=== PATIENT | male | born 1955 | race Caucasian/White ===

== ENCOUNTER 2023-02-18 14:10 | Emergency (ER) | payer MEDICARE, MEDICAID ==
[~2023-02-18] VITALS: Ht 172.7 cm; Wt 74.8 kg
[2023-02-18 14:52] LABS: BASO % 0.2 % (0.0-1.0); EOS # 0.2 10*3/uL (0.0-0.4); EOS % 2.2 % (1.0-4.0); HEMATOCRIT 38.8 % (42.0-52.0); LYMPH # 2.1 10*3/uL (1.3-4.4); LYMPH % 19.2 % (27.0-41.0); MEAN CELL VOLUME 91.9 fl (80.0-94.0); MEAN CORPUSCULAR HGB 30.8 pg (27.0-31.0); MEAN CORPUSCULAR HGB CONC 33.5 g/dl (33.0-37.0); MEAN PLATELET VOLUME 10.1 fl (9.6-12.3); MONO % 8.9 % (3.0-9.0); NEUT # 7.5 10*3/uL (2.3-7.9); PLATELET COUNT AUTOMATED 322 10*3/uL (130-400); RED BLOOD COUNT 4.22 10*6/uL (4.50-5.90); RED CELL DISTRI WIDTH 12.8 % (0-14.5); WHITE BLOOD COUNT 10.9 10*3/uL (4.8-10.8)
[2023-02-18 15:04] LABS: ACT PARTIAL THROMBO TIME 35.4 SECONDS (20.0-32.1); INTERNATIONAL NORM RATIO 1.1 (2.0-3.5)
[2023-02-18 15:16] LABS: ALKALINE PHOSPHATASE 109 U/L (46-116); BUN 13 mg/dl (9-23); CHLORIDE 98 mmol/L (98-107); POTASSIUM 3.8 mmol/L (3.4-5.1); SGPT/ALT 20 U/L (10-49); TOTAL PROTEIN 6.2 gm/dL (6.0-8.0)
[2023-02-18] MEDS ORDERED: LEVOFLOXACIN500 MG PO (18:17)
== END 2023-02-18 19:26 | disposition home or self-care (01) ==
LOC: ED 14:10
PROVIDERS: Nurse Practitioner Family
DX: J18.9 Pneumonia, unspecified organism (principal); I10 Essential (primary) hypertension

== ENCOUNTER → 2023-05-07 | Outpatient (CLI) | payer MEDICARE, MEDICAID ==
[~2023-05-07] MED LIST: LEVOFLOXACIN500 MG PO
== END | disposition home or self-care (01) ==
LOC: CARD 00:14
PROVIDERS: ATTEND Nurse Practitioner
DX: R06.02 Shortness of breath (principal); R79.89 Other specified abnormal findings of blood chemistry

== ENCOUNTER → 2023-06-03 | Outpatient (CLI) | payer MEDICARE, MEDICAID | END | disposition home or self-care (01) | LOC: CT 04:20 → LAB 11:00 → CT 11:00 | PROVIDERS: ATTEND Internal Medicine Critical Care Medicine | DX: J47.9 Bronchiectasis, uncomplicated (principal); R91.8 Other nonspecific abnormal finding of lung field; I25.10 Atherosclerotic heart disease of native coronary artery without angina pectoris ==

== ENCOUNTER → 2023-06-24 | Outpatient (CLI) | payer OTHER, MEDICAID ==
[~2023-06-24] MED LIST changes: +ATORVASTATIN CA20 M1 PO; +ELIQUIS5 M1 PO; +HEARTBURN RELIE20 MG PO; +HYDR12.5C PO; +Lopressor25 MG PO
== END | disposition home or self-care (01) ==
LOC: CARD 06-10 07:00
PROVIDERS: ATTEND Internal Medicine Cardiovascular Disease
DX: R06.09 Other forms of dyspnea (principal); R79.89 Other specified abnormal findings of blood chemistry; R06.02 Shortness of breath

== ENCOUNTER → 2023-07-09 | Day surgery (SDC) | payer OTHER, MEDICAID ==
[~2023-07-09] VITALS: Ht 185.4 cm; Wt 68.0 kg
[~2023-07-09] MED LIST changes: +Albuterol Sulf/Ipratropium 3 ML VIAL NEB ONE; +Albuterol Sulfate 2.5 MG/0.5 ML VIAL NEB ONE; +Albuterol Sulfate 2.5 MG/3 ML VIAL NEB ONE; +Lactated Ringer's Solution 1,000 ML IV ONE; +Lidocaine Hydrochloride 4% 5 ML AMP NEB ONE; +Lidocaine Hydrochloride 4% 5 ML AMP ONE; +Midazolam Hydrochloride 2 MG/2 ML VIAL IV ONE; +PROPOFOL 200 MG/20 ML VIAL IV ONE
[2023-07-09 08:20] VITALS: BP 108/65
[2023-07-09 08:55] VITALS: BP 113/61
[2023-07-09 09:10] VITALS: BP 108/60
[2023-07-09 09:25] VITALS: BP 110/55
[2023-07-10 15:07] LABS: ACID FAST SPEC PROCESSING Concentration (.)
== END | disposition home or self-care (01) ==
LOC: SDC 07-07 09:30
PROVIDERS: ATTEND Internal Medicine Critical Care Medicine
DX: J47.9 Bronchiectasis, uncomplicated (principal); R91.8 Other nonspecific abnormal finding of lung field; R04.2 Hemoptysis; J18.9 Pneumonia, unspecified organism; J41.1 Mucopurulent chronic bronchitis; I48.91 Unspecified atrial fibrillation; I11.0 Hypertensive heart disease with heart failure; I50.9 Heart failure, unspecified; I25.10 Atherosclerotic heart disease of native coronary artery without angina pectoris; G43.909 Migraine, unspecified, not intractable, without status migrainosus; K21.9 Gastro-esophageal reflux disease without esophagitis; E78.00 Pure hypercholesterolemia, unspecified; M10.9 Gout, unspecified; I25.2 Old myocardial infarction; Z98.890 Other specified postprocedural states; Z79.899 Other long term (current) drug therapy; Z82.49 Family history of ischemic heart disease and other diseases of the circulatory system

== ENCOUNTER 2023-08-18 11:07 | Inpatient (IN) | payer MEDICARE, MEDICAID ==
[~2023-08-18] VITALS: Ht 172.7 cm; Wt 72.4 kg
[~2023-08-18 11:07] MED LIST changes: -Albuterol Sulf/Ipratropium 3 ML VIAL NEB ONE; -Albuterol Sulfate 2.5 MG/0.5 ML VIAL NEB ONE; -Albuterol Sulfate 2.5 MG/3 ML VIAL NEB ONE; -Lactated Ringer's Solution 1,000 ML IV ONE; -Lidocaine Hydrochloride 4% 5 ML AMP NEB ONE; -Lidocaine Hydrochloride 4% 5 ML AMP ONE; -Midazolam Hydrochloride 2 MG/2 ML VIAL IV ONE; -PROPOFOL 200 MG/20 ML VIAL IV ONE
[2023-08-18 11:13] VITALS: BP 120/71
[2023-08-18 11:47] LABS: BASO % 0.1 % (0.0-1.0); EOS # 0.1 10*3/uL (0.0-0.4); EOS % 1.3 % (1.0-4.0); HEMATOCRIT 41.3 % (42.0-52.0); LYMPH # 2.1 10*3/uL (1.3-4.4); LYMPH % 24.7 % (27.0-41.0); MEAN CELL VOLUME 91.8 fl (80.0-94.0); MEAN CORPUSCULAR HGB 28.7 pg (27.0-31.0); MEAN CORPUSCULAR HGB CONC 31.2 g/dl (33.0-37.0); MEAN PLATELET VOLUME 10.2 fl (9.6-12.3); MONO # 0.7 10*3/uL (0.1-1.0); MONO % 8.8 % (3.0-9.0); NEUT # 5.5 10*3/uL (2.3-7.9); NEUT % 64.6 % (47.0-73.0); PLATELET COUNT AUTOMATED 301 10*3/uL (130-400); WHITE BLOOD COUNT 8.5 10*3/uL (4.8-10.8)
[2023-08-18 12:11] LABS: ALKALINE PHOSPHATASE 137 U/L (46-116); BUN 13 mg/dl (9-23); CHLORIDE 100 mmol/L (98-107); LIPASE 35 U/L (12-53); POTASSIUM 3.7 mmol/L (3.4-5.1); SGPT/ALT 50 U/L (5-49); TOTAL PROTEIN 6.4 gm/dL (6.0-8.0)
[2023-08-18] MEDS ORDERED: AZITHROMYCIN 250 ML IV ONE (12:25)
[2023-08-18] MEDS ORDERED: Ceftriaxone Sodium 1 GM/10 ML SYR IV ONE (12:25)
[2023-08-18 14:20] VITALS: BP 116/66
[2023-08-18 16:00] VITALS: BP 120/54
[2023-08-18] MEDS ORDERED: Piperacillin Sodium/Tazobact 4.5 GM,IV 1 EA in SODIUM CHLORIDE 0.9% 100 ML IV SCH (16:00)
[2023-08-18] MEDS ORDERED: APIXABAN 5 MG TAB PO SCH (18:00)
[2023-08-18 20:00] VITALS: BP 117/68
[2023-08-18] MEDS ORDERED: FAMOTIDINE 20 MG TAB PO SCH (22:00)
[2023-08-18] MEDS ORDERED: Metoprolol Tartrate 25 MG TAB PO SCH (22:00)
[2023-08-19] VITALS: BP 99/59
[2023-08-19 06:28] LABS: BASO % 0.2 % (0.0-1.0); EOS # 0.1 10*3/uL (0.0-0.4); EOS % 2.2 % (1.0-4.0); LYMPH # 1.7 10*3/uL (1.3-4.4); LYMPH % 29.8 % (27.0-41.0); MEAN CELL VOLUME 90.7 fl (80.0-94.0); MEAN CORPUSCULAR HGB 29.2 pg (27.0-31.0); MEAN CORPUSCULAR HGB CONC 32.2 g/dl (33.0-37.0); MEAN PLATELET VOLUME 10.3 fl (9.6-12.3); MONO # 0.7 10*3/uL (0.1-1.0); MONO % 11.1 % (3.0-9.0); NEUT # 3.3 10*3/uL (2.3-7.9); NEUT % 56.2 % (47.0-73.0); PLATELET COUNT AUTOMATED 269 10*3/uL (130-400); RED BLOOD COUNT 4.08 10*6/uL (4.50-5.90); WHITE BLOOD COUNT 5.8 10*3/uL (4.8-10.8)
[2023-08-19 08:00] VITALS: BP 104/64
[2023-08-19] MEDS ORDERED: HYDROCHLOROTHIAZIDE 12.5 MG CAP PO SCH (10:00)
[2023-08-19 12:00] VITALS: BP 103/58
[2023-08-19] MEDS ORDERED: Albuterol Sulfate 2.5 MG/3 ML VIAL NEB SCH (14:30)
[2023-08-19 16:00] VITALS: BP 105/68
[2023-08-19 20:00] VITALS: BP 124/77
[2023-08-19] MEDS ORDERED: PROVENTIL HFA6.7 GM INH (20:50)
[2023-08-19] MEDS ORDERED: AMLODIPINE BESY10 MG PO (20:50)
[2023-08-20] VITALS: BP 107/62
[2023-08-20 06:03] LABS: BASO % 0.3 % (0.0-1.0); EOS # 0.1 10*3/uL (0.0-0.4); EOS % 1.3 % (1.0-4.0); HEMATOCRIT 37.8 % (42.0-52.0); LYMPH # 1.8 10*3/uL (1.3-4.4); LYMPH % 25.1 % (27.0-41.0); MEAN CELL VOLUME 92.9 fl (80.0-94.0); MEAN CORPUSCULAR HGB 28.5 pg (27.0-31.0); MEAN CORPUSCULAR HGB CONC 30.7 g/dl (33.0-37.0); MEAN PLATELET VOLUME 10.6 fl (9.6-12.3); MONO # 0.7 10*3/uL (0.1-1.0); MONO % 10.1 % (3.0-9.0); NEUT # 4.4 10*3/uL (2.3-7.9); NEUT % 62.6 % (47.0-73.0); PLATELET COUNT AUTOMATED 272 10*3/uL (130-400); RED BLOOD COUNT 4.07 10*6/uL (4.50-5.90)
[2023-08-20 08:00] VITALS: BP 130/60
[2023-08-20 12:00] VITALS: BP 107/60
[2023-08-20 16:00] VITALS: BP 128/49
[2023-08-20 20:00] VITALS: BP 102/50
[2023-08-20] MEDS ORDERED: ACETAMINOPHEN 500 MG TAB PO PRN (21:45)
[2023-08-21] VITALS: BP 110/63
[2023-08-21 06:45] LABS: BASO % 0.2 % (0.0-1.0); EOS # 0.1 10*3/uL (0.0-0.4); EOS % 1.6 % (1.0-4.0); LYMPH # 1.5 10*3/uL (1.3-4.4); MEAN CELL VOLUME 92.5 fl (80.0-94.0); MEAN CORPUSCULAR HGB 28.8 pg (27.0-31.0); MEAN CORPUSCULAR HGB CONC 31.1 g/dl (33.0-37.0); MEAN PLATELET VOLUME 10.6 fl (9.6-12.3); MONO # 0.8 10*3/uL (0.1-1.0); MONO % 12.3 % (3.0-9.0); NEUT # 3.7 10*3/uL (2.3-7.9); NEUT % 60.4 % (47.0-73.0); PLATELET COUNT AUTOMATED 257 10*3/uL (130-400); RED BLOOD COUNT 3.89 10*6/uL (4.50-5.90); RED CELL DISTRI WIDTH 14.1 % (0-14.5); WHITE BLOOD COUNT 6.2 10*3/uL (4.8-10.8)
[2023-08-21 08:00] VITALS: BP 103/65
[2023-08-21 12:00] VITALS: BP 111/58
[2023-08-21] MEDS ORDERED: Meclizine Hydrochloride 25 MG TAB PO SCH (14:00)
[2023-08-21 16:00] VITALS: BP 115/60
[2023-08-21 20:00] VITALS: BP 121/57
[2023-08-22] VITALS: BP 124/60
[2023-08-22 08:00] VITALS: BP 97/59
[2023-08-22 12:00] VITALS: BP 121/74
[2023-08-22 16:00] VITALS: BP 109/65
[2023-08-22 20:00] VITALS: BP 109/60
[2023-08-22 20:50] VITALS: BP 135/75
[2023-08-23] VITALS: BP 112/70
[2023-08-23 08:00] VITALS: BP 111/68
[2023-08-23 12:00] VITALS: BP 111/63
[2023-08-23 16:00] VITALS: BP 117/72
[2023-08-23] MEDS ORDERED: ZOSYN 4.54.5 GM/100 IV (18:20)
== END 2023-08-23 19:09 | DRG 178 ==
LOC: ED 11:07 → 4E 13:12 → EDHOLD 13:12 → 4E 13:33
PROVIDERS: Internal Medicine; ADMIT Internal Medicine; ATTEND Internal Medicine
PROC: 05HB33Z Insertion of Infusion Device into Right Basilic Vein, Percutaneous Approach (ICD-10-PCS; principal; 2023-08-19)
PROC: B54MZZA Ultrasonography of Right Upper Extremity Veins, Guidance (ICD-10-PCS; 2023-08-19)
DX: J15.1 Pneumonia due to Pseudomonas (principal); I48.21 Permanent atrial fibrillation; J47.1 Bronchiectasis with (acute) exacerbation; I25.10 Atherosclerotic heart disease of native coronary artery without angina pectoris; K21.00 Gastro-esophageal reflux disease with esophagitis, without bleeding; E78.2 Mixed hyperlipidemia; R54 Age-related physical debility; M1A.9XX0 Chronic gout, unspecified, without tophus (tophi); I50.9 Heart failure, unspecified; I11.0 Hypertensive heart disease with heart failure; Z88.5 Allergy status to narcotic agent; Z79.01 Long term (current) use of anticoagulants

== ENCOUNTER → 2023-10-09 | Outpatient (CLI) | payer MEDICARE, MEDICAID ==
[~2023-10-09] MED LIST changes: +AMLODIPINE BESY10 MG PO; +PROVENTIL HFA6.7 GM INH; +ZOSYN 4.54.5 GM/100 IV
== END | disposition home or self-care (01) ==
LOC: RAD 12:38
PROVIDERS: ATTEND Internal Medicine Critical Care Medicine
DX: R91.8 Other nonspecific abnormal finding of lung field (principal); Z98.890 Other specified postprocedural states